=== PATIENT | female | born 1970 | race Two or more races ===

== ENCOUNTER → 2022-12-25 | Outpatient (CLI) | payer OTHER ==
--- NOTE | 2022-12-26 07:20 | XR ---
EXAMINATION TYPE: XR cervical spine comp DATE OF EXAM: 12/25/2022 COMPARISON: NONE HISTORY: Pain TECHNIQUE: Four views are submitted. FINDINGS: The odontoid is intact. There are no compression deformities. The prevertebral soft tissue structur es are within normal limits. Moderate degenerative disc disease C6-C7 with mild changes of remaining levels. Facet arthropathy cervical thoracic junction. IMPRESSION: 1. Moderate degenerative disc disease C6-C7. Correlate with MRI as clinically warranted.
--- NOTE | 2022-12-26 07:26 | XR ---
EXAMINATION TYPE: XR knee complete LT DATE OF EXAM: 12/25/2022 COMPARISON: NONE HISTORY: Pain TECHNIQUE: Three views are submitted. FINDINGS: Joint spaces are preserved. Osseous structures are intact. No acute fracture seen. Linear lucency along the lower pole patella. IMPRESSION: 1. Linear lucency along the lower pole of the patella likely congenital. If point tender consider CT scan. No definite acute fracture.
--- NOTE | 2022-12-26 07:32 | XR ---
EXAMINATION TYPE: XR shoulder complete RT DATE OF EXAM: 12/25/2022 COMPARISON: NONE HISTORY: Pain TECHNIQUE: Three views are submitted. FINDINGS: The osseous structures are intact. There is no acute fracture or dislocation. Mild AC joint arthropa thy. IMPRESSION: 1. No acute process.
== END | disposition home or self-care (01) ==
LOC: RADXRMAIN 15:56
PROVIDERS: ATTEND Emergency Medicine
DX: S13.4XXA Sprain of ligaments of cervical spine, initial encounter (principal); S43.401A Unspecified sprain of right shoulder joint, initial encounter; S80.02XA Contusion of left knee, initial encounter; M50.323 Other cervical disc degeneration at C6-C7 level
CPT/HCPCS: 72050

== ENCOUNTER → 2022-12-26 | Outpatient (CLI) | payer OTHER ==
--- NOTE | 2022-12-26 20:51 | CT ---
EXAMINATION TYPE: CT knee LT wo con DATE OF EXAM: 12/26/2022 COMPARISON: Plain films 12/25/2022 HISTORY: Contusion of left knee, initial encounter CT DLP: 317 mGycm Automated exposure control for dose reduction was used. Contrast: None Technique: Axial images 3 mm thick sections. Reconstructed images in coronal and sagittal planes. FINDINGS: Some mild narrowing of the medial compartment joint space is present. No significant joint effusion i s evident. No acute fracture is identified. Attention is paid to the patella. No acute fracture of the patella is evident. On the lateral project ion a small lucency is evident which may account for the x-ray findings. IMPRESSION: 1. NO ACUTE OSSEOUS ABNORMALITY RADIOGRAPHICALLY APPARENT. FOLLOW UP EXAMS CAN BE PERFORMED CLINIC [facility] INDICATED.
== END | disposition home or self-care (01) ==
LOC: RADCTMAIN 13:19
PROVIDERS: ATTEND Emergency Medicine
DX: S80.02XA Contusion of left knee, initial encounter (principal)

== ENCOUNTER → 2023-01-20 | Outpatient (CLI) | payer OTHER ==
--- NOTE | 2023-01-20 07:52 | MR ---
EXAMINATION TYPE: MR knee LT wo con DATE OF EXAM: 01/20/2023 COMPARISON: CT left knee December 26, 2022. Left knee x-ray December 25, 2022 HISTORY: Left knee pain, S/P fall 12-11-22. TECHNIQUE: Multiplanar, multisequence images of the knee is performed without IV contrast. FINDINGS: MEDIAL MENISCUS: Anterior and posterior horns are intact without tear. LATERAL MENISCUS: Anterior and posterior horns are intact without tear. CRUCIATE LIGAMENTS: The anterior and posterior cruciate ligaments are intact and unremarkable. COLLATERAL LIGAMENTS: The medial collateral ligament and lateral collateral ligament complex are inta ct and unremarkable. EXTENSOR MECHANISM: Visualized quadriceps and patellar tendons are intact. EFFUSION: No significant suprapatellar joint effusion. POPLITEAL CYST: No popliteal/blas cyst. TRICOMPARTMENT SPACES: [id number] tricompartment joint space narrowing with mild spurring. 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 BONE MARROW SIGNAL: There is 9 mm focus of increased T2 signal posterior aspect of the patella at the site of full-thickness cartilaginous loss axial image 23. OTHER: [id number] subcutaneous edema anterior superficial infrapatellar level. IMPRESSION: No meniscal or ligamentous tear is seen. Mild/moderate tricompartment degenerative change s are present as detailed above.
== END | disposition home or self-care (01) ==
LOC: RADMRIMAIN 05:41
PROVIDERS: ATTEND Emergency Medicine
DX: S80.02XD Contusion of left knee, subsequent encounter (principal); S13.4XXD Sprain of ligaments of cervical spine, subsequent encounter; S43.401D Unspecified sprain of right shoulder joint, subsequent encounter; M17.12 Unilateral primary osteoarthritis, left knee; W19.XXXD Unspecified fall, subsequent encounter

== ENCOUNTER → 2023-03-13 | Outpatient (CLI) | payer OTHER ==
--- NOTE | 2023-03-13 16:22 | XR ---
EXAMINATION TYPE: XR shoulder complete RT DATE OF EXAM: 03/13/2023 CLINICAL HISTORY: Sprain. TECHNIQUE: Three views of the right shoulder are obtained. COMPARISON: Right shoulder x-ray December 25, 2022. FINDINGS: There is no acute fracture/dislocation evident in the right shoulder. The acromioclavicul ar and glenohumeral joint spaces appear stable and within normal limits. The visualized ribs are int act and unremarkable. IMPRESSION: There is no acute fracture or dislocation in the right shoulder. No significant change f rom prior.
== END | disposition home or self-care (01) ==
LOC: RADXRMAIN 15:55
PROVIDERS: ATTEND Emergency Medicine
DX: S43.401D Unspecified sprain of right shoulder joint, subsequent encounter (principal); X58.XXXD Exposure to other specified factors, subsequent encounter

== ENCOUNTER → 2023-03-17 | Outpatient (CLI) | payer OTHER ==
--- NOTE | 2023-03-17 21:28 | MR ---
EXAMINATION TYPE: MR shoulder RT wo con DATE OF EXAM: 03/17/2023 COMPARISON: None HISTORY: Right shoulder pain, Difficult to raise arm above head, Fell on cement 12-10-22 TECHNIQUE: Multiplanar, multisequence imaging of the right shoulder is performed without contrast. FINDINGS: There is no bone contusion or fracture. There is very mild osteoarthritic change of the AC joint. There is a downsloping acromion resulting i n mild shoulder impingement. There is a tear of the supraspinatus tendon. It is a rim rent intrasubstance tear that extends proxim ally tendon near the musculotendinous junction but there is no retraction. The subscapularis and infraspinatus tendons are intact. The biceps tendon is normal in signal intensity and position within the bicipital groove and the tony ps anchor is intact. Grossly the cartilaginous labrum is intact. There is no joint effusion. There is no subacromial or subdeltoid bursitis. IMPRESSION: 1. Tear of the supraspinatus tendon as described above. 2. Mild shoulder impingement secondary to configuration of the acromion process.
== END | disposition home or self-care (01) ==
LOC: RADMRIMAIN 20:04
PROVIDERS: ATTEND Emergency Medicine
DX: M25.811 Other specified joint disorders, right shoulder (principal); S13.4XXD Sprain of ligaments of cervical spine, subsequent encounter; S43.401D Unspecified sprain of right shoulder joint, subsequent encounter; S80.02XD Contusion of left knee, subsequent encounter; X58.XXXD Exposure to other specified factors, subsequent encounter

== ENCOUNTER → 2023-04-30 | Outpatient (CLI) | payer OTHER ==
[2023-04-30 18:08] LABS: INR 0.9 (<1.2); Partial Thromboplastin Time 25.4 sec (22.0-30.0); Prothrombin Time 10.5 sec (10.0-12.5)
[2023-05-01 04:09] LABS: Basophils # (A) 0.04 X 10*3/uL (0.00-0.10); Basophils % (A) 0.5 %; Eosinophils # (A) 0.07 X 10*3/uL (0.04-0.35); Eosinophils % (A) 0.9 %; HCT 38.1 % (37.2-46.3); HGB 12.6 g/dL (12.0-15.0); Lymphocytes # (A) 1.97 X 10*3/uL (0.90-5.00); Lymphocytes % (A) 26.1 %; MCH 29.2 pg (27.0-32.0); MCHC 33.1 g/dL (32.0-37.0); MCV 88.2 FL (80.0-97.0); Mean Platelet Volume 11.5 FL (9.5-12.2); Monocytes # (A) 0.55 X 10*3/uL (0.20-1.00); Monocytes % (A) 7.3 %; NRBC Per 100 WBC 0 X 10*3/uL (0.00-0.01); Neutrophils % (A) 64.8 %; Platelet Count 269 X 10*3/uL (140-440); RBC 4.32 X 10*6/uL (4.10-5.20); RDW 12.5 % (11.5-14.5); WBC 7.56 X 10*3/uL (4.50-10.00)
[2023-05-01 04:54] LABS: BUN/Creat Ratio 14.25 Ratio (12.00-20.00); Blood Urea Nitrogen 11.4 mg/dL (9.0-27.0); Glucose 84 mg/dL (70-110)
[2023-05-01 04:55] LABS: ALT 23 U/L (8-44); AST 17 U/L (13-35); Albumin 4.2 g/dL (3.8-4.9); Albumin/Globulin Ratio 1.75 Ratio (1.60-3.17); Alkaline Phosphatase 86 U/L (41-126); Calcium 9.7 mg/dL (8.7-10.3); Carbon Dioxide 25.5 mmol/L (21.6-31.8); Chloride 103 mmol/L (96-109); Globulin 2.4 g/dL (1.6-3.3); Potassium 4.6 mmol/L (3.5-5.5); Sodium 137 mmol/L (135-145); Total Bilirubin <0.2 mg/dL (0.3-1.2); Total Protein 6.6 g/dL (6.2-8.2)
== END | disposition home or self-care (01) ==
LOC: LABWHC1 15:41
DX: Z01.812 Encounter for preprocedural laboratory examination (principal); E55.9 Vitamin D deficiency, unspecified; F41.1 Generalized anxiety disorder; I10 Essential (primary) hypertension; E78.5 Hyperlipidemia, unspecified
CPT/HCPCS: 36415; 80053; 82306; 83036; 84443; 85025; 85610; 85730